=== PATIENT | male | born 1990 ===

== ENCOUNTER → 2021-03-14 12:48 | Outpatient (CLI) | payer OTHER, SELFPAY ==
[2021-03-14 20:39] LABS: Free T4, Direct Thyroxine 0.52 ng/dL (0.78-2.19)
== END ==
PROVIDERS: PCP Physician Assistant Medical; Visit Provider Physician Assistant Medical
DX: E03.9 Hypothyroidism, unspecified (principal)
CPT/HCPCS: 84439; 84443